=== PATIENT | male | born 1970 | race African-American/Black ===

== ENCOUNTER 2017-10-08 11:29 | Day surgery (SDC) | payer OTHER ==
[2017-10-01 11:25] VITALS: BMI 33.4
[2017-10-08] MEDS ORDERED: PROPOFOL 20 ML ONE ×2 (12:31→13:13)
[2017-10-08] MEDS ORDERED: ONDANSETRON 4 MG/2 ML VIAL ONE (12:37)
[2017-10-08] MEDS ORDERED: ceFAZolin SODIUM 1 GM VIAL ONE (12:55)
[2017-10-08] MEDS ORDERED: ONDANSETRON 4 MG/2 ML VIAL IVPUSH PRN (14:49)
[2017-10-08] MEDS ORDERED: oxyCODONE HCL 5 MG TABLET PO PRN (14:49)
[2017-10-08] MEDS ORDERED: LACTATED RINGERS SOLUTION 1,000 ML IV SCH (15:00)
[2017-10-08 16:03] VITALS: BP 127/78; PULSE 69; TEMP 97.7
--- NOTE | 2017-10-09 16:35 | OP ---
DATE OF OPERATION: 10/08/2017 PREOPERATIVE DIAGNOSIS: Right wrist arthrosis. POSTOPERATIVE DIAGNOSIS: Right wrist arthrosis. OPERATIVE PROCEDURES: 1. Right wrist proximal row carpectomy. 2. Right wrist radial styloidectomy. 3. Right wrist denervation with posterior interosseous nerve neurectomy. SURGEON: Cristine Luna MD BUSINESS OBJECTS ANALYST: NAT Joe ANESTHESIA: Regional. COMPLICATIONS: None. ESTIMATED BLOOD LOSS: Minimal. INDICATION FOR PROCEDURE: The patient is a 47-year-old male with the above finding, indicated for operative treatment. Risks, benefits, and alternatives were discussed with the patient at length. Proper informed consent was obtained. DESCRIPTION OF PROCEDURE: After proper identification of the patient and correct operative site, patient was brought to the operating room and placed on the operative table. All prominences were well padded. Regional anesthesia and sedation were given. Right upper extremity was prepped and draped in the usual sterile fashion. Intravenous antibiotics were given. Timeout procedure was performed. Esmarch bandage to exsanguinate the right upper extremity. Tourniquet was inflated to 250 mmHg. A longitudinal incision was made over the dorsal aspect of the wrist. Incision was taken sharply through the skin with blunt and sharp dissection through the subcutaneous tissues. Extensor retinaculum was opened over the third dorsal compartment, and the extensor pollicis longus tendon was transposed for the remainder of the procedure. Second and fourth compartments were elevated off the distal radius. The fourth compartment was opened, and the posterior interosseous nerve was found in the base of this compartment and was resected for a partial wrist denervation. The dorsal wrist capsule was opened using a U-shaped capsulotomy distally based. The radioscaphoid joint was found to be severely arthritic. The radiolunate joint was found to be intact. The capitate head was also intact. Therefore, a proximal row carpectomy was chosen over a fusion. The proximal row was resected using a combination of subperiosteal elevation using joysticks to maneuver the bones as well as piecemeal removal. Once the entire proximal row was removed including the scaphoid, lunate, and triquetrum, the capitate sat nicely in the lunate facet of the radius. A radial styloidectomy was performed, removing significant arthrosis in this area. The wound was then irrigated to remove any small bony fragments that may be remaining. Volar wrist capsule was left intact. Dorsal wrist capsule was repaired using Vicryl suture. X-rays were taken at this point with wrist in all positions of range of motion and was found to be stable. Retinaculum was repaired underneath the extensor pollicis longus tendon which remained transposed. The skin was repaired in layers using 4-0 Vicryl and 4-0 nylon suture. Sterile dressings and splint were placed. Patient was reversed from anesthesia and brought to Recovery in stable condition. He tolerated the procedure well. Jonny Leon, the medical assistant prn, was integral throughout the procedure. Procedure could not have been performed without a skilled operative medical assistant prn. CRISTINE LUNA M.D. [id number]
--- NOTE | 2017-10-13 13:52 | PATH ---
Surgical Pathology Report Patient Name: MALIK MEHTA Med. Rec. #: [id number] /Age/Gender: 1970 (Age: 47) / M Account: [id number] Location: [facility] Taken: 10/08/2017 Received: 10/08/2017 Reported: 10/13/2017 Physicians: Giancarlo Hidalgo M.D. Specimen(s) Received WRIST BONES RIGHT Clinical History Right wrist scapholunate advanced collapse Final Diagnosis BONE, RIGHT WRIST, EXCISION: BONE AND CARTILAGE WITH REACTIVE CHANGES. Electronically Signed Ramiro Rosado M.D. Gross Description Received in formalin labeled "wrist bones right" is a 5 x 5 x 2 cm aggregate of multiple portions of bone.The articular surface is taylor-yellow and smooth. The underlying trabecular bone is yellow and hard. Supervisor [employer] sections submitted in one cassette, following decalcification. long/10/09/2017
== END 2017-10-08 16:10 | disposition home or self-care (01) ==
LOC: FASU 11:29
PROVIDERS: ATTEND Orthopaedic Surgery Hand Surgery
PROC: 0PBH0ZZ Excision of Right Radius, Open Approach (ICD-10-PCS; 2017-10-08)
PROC: 01B60ZZ Excision of Radial Nerve, Open Approach (ICD-10-PCS; 2017-10-08)
PROC: 0PTM0ZZ Resection of Right Carpal, Open Approach (ICD-10-PCS; principal; 2017-10-08 12:43)
DX: M19.031 Primary osteoarthritis, right wrist (principal)
CPT/HCPCS: 73110-TC-RT-FY; 88304-TC; 88311-TC